=== PATIENT | male | born 1980 | race Caucasian/White ===

== ENCOUNTER 2017-09-22 15:08 | Emergency (ER) | payer BC ==
[2017-09-22 15:41] VITALS: TEMP 98.6; BMI 39.6
--- NOTE | 2017-09-22 15:48 | PDOC ---
Rapid Medical Evaluation Chief Complaint: Rectal Bleed Time Seen by Provider: 09/22/17 15:45 Medical Evaluation: Allergies Allergy/AdvReac Type Severity Reaction Status Date / Time No Known Allergies Allergy Verified 09/22/17 15:36 Vital Signs Temp Pulse Resp BP Pulse Ox 98.6 F 90 19 162/85 95 09/22/17 15:36 09/22/17 15:36 09/22/17 15:36 09/22/17 15:36 09/22/17 15:36 09/22/17 15:46 Pt with c/o: rectal bleed after taking a cleanse. Pt denies constipation prior to cleanse Pt on brief exam: No abd distention or tenderness, VSS pt ordered for : cbc, comp Pt to proceed to the ed Discharge Disposition - Diagnosis Rectal bleeding - Referrals - Patient Instructions - Post Discharge Activity
[2017-09-22 16:01] LABS: BASO % 1.2 % (0-2.0); EOS % 6.4 % (0-4.5); HEMOGLOBIN 14.3 GM/dL (11.7-16.9); LYMPH % 32.6 % (8-40); MCH 28.5 pg (25.7-33.7); MEAN CELL VOLUME 83.7 fl (80-96); MEAN PLT VOLUME 8.3 fl (7.5-11.1); MONO % 9.6 % (3.8-10.2); NEUT % 50.2 % (42.8-82.8); PLATELET COUNT 208 K/MM3 (134-434); RBC 5.02 M/mm3 (4.00-5.60); RDW 12.8 % (11.9-15.9); WHITE BLOOD COUNT 6.8 K/mm3 (4.0-10.0)
[2017-09-22 16:37] LABS: ALBUMIN 4.2 g/dl (3.4-5.0); ALK PHOS 81 U/L (45-117); ANION GAP 5 (8-16); BILIRUBIN,TOTAL 0.8 mg/dL (0.2-1.0); BLOOD UREA NITROGEN 16 mg/dL (7-18); CHLORIDE 102 mmol/L (98-107); CO2 31 mmol/L (21-32); CREATININE 1.4 mg/dL (0.7-1.3); GLUCOSE,RANDOM 81 mg/dL (74-106); POTASSIUM 4.2 mmol/L (3.5-5.1); SGOT/AST 39 U/L (15-37); SGPT/ALT 72 U/L (12-78); SODIUM 138 mmol/L (136-145); TOT PROT 7.5 g/dl (6.4-8.2)
--- NOTE | 2017-09-22 17:28 | PDOC ---
History of Present Illness - General History Source: Patient Exam Limitations: No Limitations - History of Present Illness Initial Comments: The patient is a 37 year old male with a significant past medical history of HTN and asthma who presents to the emergency department complaining of rectal bleeding beginning last night. The patient reports he first noted blood in stool at 10:45pm (09/21) last night after taking a laxative. The patient reports a mix of stool and blood after attempting to pass stool a number of times. The patient reports he was not producing stool, but only producing blood after looking in the toilet at 8am this morning, which prompted his visit to the ED. The patient describes the blood as bright red in color. He reports associated pain in his left upper quadrant ranked 3/10 in severity. He reports no previous history of blood in stool, and admits taking a laxative once a month. The patient denies loss of appetite. The patient denies chest pain, shortness of breath, headache, and dizziness. Denies fevers, chills, nausea, vomiting, diarrhea, and constipation. Denies dysuria, frequency, urgency, and hematuria. Allergies: NKDA Past surgical history: Deviated septum. Social history: Patient admits alcohol consumption on non-working days. No reported cigarette or drug use. PCP: Dr. Nikita Streeter <Raf Martinez - Last Filed: 09/22/17 19:09> <Sravanthi Kramer - Last Filed: 09/23/17 01:52> - General Chief Complaint: Rectal Bleed Stated Complaint: ABD PAIN, RECTAL BLEED (PCP SENT) Time Seen by Provider: 09/22/17 15:45 Past History <Raf Martinez - Last Filed: 09/22/17 19:09> - Past Medical History Asthma: Yes COPD: No HTN: Yes - Suicide/Smoking/Psychosocial Hx Smoking History: Never smoked <Sravanthi Kramer - Last Filed: 09/23/17 01:52> - Past Medical History Allergies/Adverse Reactions: Allergies Allergy/AdvReac Type Severity Reaction Status Date / Time No Known Allergies Allergy Verified 09/22/17 15:36 Review of Systems - Review of Systems Able to Perform ROS?: Yes Comments:: CONSTITUTIONAL: Absent: fever, chills, diaphoresis, generalized weakness, malaise, loss of appetite HEENT: Absent: rhinorrhea, nasal congestion, throat pain, throat swelling, difficulty swallowing, mouth swelling, ear pain, eye pain, visual Changes CARDIOVASCULAR: Absent: chest pain, syncope, palpitations, irregular heart rate, lightheadedness , peripheral edema RESPIRATORY: Absent: cough, shortness of breath, dyspnea with exertion, orthopnea, wheezing, stridor, hemoptysis GASTROINTESTINAL: (+)LUQ pain.(+)Hematochezia Absent: abdominal distension, nausea, vomiting, diarrhea, constipation, melena. GENITOURINARY: Absent: dysuria, frequency, urgency, hesitancy, hematuria, flank pain, genital pain MUSCULOSKELETAL: Absent: myalgia, arthralgia, joint swelling SKIN: Absent: rash, itching, pallor HEMATOLOGIC/IMMUNOLOGIC: Absent: easy bleeding, easy bruising, lymphadenopathy, frequent infections ENDOCRINE: Absent: unexplained weight gain, unexplained weight loss, heat intolerance, cold intolerance NEUROLOGIC: Absent: headache, focal weakness or paresthesias, dizziness, unsteady gait, seizure, mental status changes. PSYCHIATRIC: Absent: anxiety, depression, suicidal or homicidal ideation, hallucinations. <Raf Martinez - Last Filed: 09/22/17 19:09> *Physical Exam - Vital Signs Last Vital Signs Temp Pulse Resp BP Pulse Ox 98.6 F 90 19 162/85 95 09/22/17 15:36 09/22/17 15:36 09/22/17 15:36 09/22/17 15:36 09/22/17 15:36 - Physical Exam Comments: GENERAL: Well developed, well nourished. Awake and alert. No acute distress. HEENT: Normocephalic, atraumatic. PERRLA, EOMI. No conjunctival pallor. Sclera are non- icteric. Moist mucous membranes. Oropharynx is clear. NECK: Supple. Full ROM. No JVD. Carotid pulses 2+ and symmetric, without bruits. No thyromegaly. No lymphadenopathy. CARDIOVASCULAR: Regular rate and rhythm. No murmurs, rubs, or gallops. Distal pulses are 2+ and symmetric. PULMONARY: No evidence of respiratory distress. Lungs clear to auscultation bilaterally. No wheezing, rales or rhonchi. ABDOMINAL: Soft. Non-tender. Non-distended. No rebound or guarding. No organomegaly. Normoactive bowel sounds. MUSCULOSKELETAL Normal range of motion at all joints. No bony deformities or tenderness. No CVA tenderness. RECTAL: (+)Carlock on glove. Normal tone. No melena. EXTREMITIES: No cyanosis. No clubbing. No edema. No calf tenderness. SKIN: Warm and dry. Normal capillary refill. No rashes. No jaundice. NEUROLOGICAL: Alert, awake, appropriate. Cranial nerves 2-12 intact. No deficits to light touch and temperature in face, upper extremities and lower extremities. No motor deficits in the in face, upper extremities and lower extremities. Normoreflexic in the upper and lower extremities. Normal speech. Toes are down- going bilaterally. PSYCHIATRIC: Cooperative. Good eye contact. Appropriate mood and affect. <Raf Martinez - Last Filed: 09/22/17 19:09> - Vital Signs Last Vital Signs Temp Pulse Resp BP Pulse Ox 98.6 F 90 19 162/85 95 09/22/17 15:36 09/22/17 15:36 09/22/17 15:36 09/22/17 15:36 09/22/17 15:36 <Sravanthi Kramer - Last Filed: 09/23/17 01:52> ED Treatment Course - LABORATORY CBC & Chemistry Diagram: 09/22/17 15:54 09/22/17 15:54 - ADDITIONAL ORDERS Additional order review: Laboratory Results 09/22/17 15:54 Sodium 138 Potassium 4.2 Chloride 102 Carbon Dioxide 31 Anion Gap 5 L BUN 16 Creatinine 1.4 H Creat Clearance w eGFR 57.34 Random Glucose 81 Calcium 9.0 Total Bilirubin 0.8 AST 39 H ALT 72 Alkaline Phosphatase 81 Total Protein 7.5 Albumin 4.2 09/22/17 15:54 RBC 5.02 MCV 83.7 MCHC 34.0 RDW 12.8 MPV 8.3 Neutrophils % 50.2 Lymphocytes % 32.6 Monocytes % 9.6 Eosinophils % 6.4 H Basophils % 1.2 - Medications Given in the ED: ED Medications Discontinued Medications Generic Name Dose Route Start Last Admin Trade Name Freq PRN Reason Stop Dose Admin Sodium Chloride 1,000 mls @ 1,000 mls/hr 09/22/17 17:35 09/22/17 17:51 Normal Saline - IV 09/22/17 18:34 1,000 mls/hr ASDIR STA Administration <Raf Martinez - Last Filed: 09/22/17 19:09> - LABORATORY CBC & Chemistry Diagram: 09/22/17 15:54 09/22/17 15:54 - ADDITIONAL ORDERS Additional order review: Laboratory Results 09/22/17 15:54 Sodium 138 Potassium 4.2 Chloride 102 Carbon Dioxide 31 Anion Gap 5 L BUN 16 Creatinine 1.4 H Creat Clearance w eGFR 57.34 Random Glucose 81 Calcium 9.0 Total Bilirubin 0.8 AST 39 H ALT 72 Alkaline Phosphatase 81 Total Protein 7.5 Albumin 4.2 09/22/17 15:54 RBC 5.02 MCV 83.7 MCHC 34.0 RDW 12.8 MPV 8.3 Neutrophils % 50.2 Lymphocytes % 32.6 Monocytes % 9.6 Eosinophils % 6.4 H Basophils % 1.2 <Sravanthi Kramer - Last Filed: 09/23/17 01:52> Medical Decision Making - Medical Decision Making Contacted Dr. Streeter at 17:33. <Raf Martinez - Last Filed: 09/22/17 19:09> - Medical Decision Making 09/23/17 01:51 Please [id number] male who experienced some rectal bleeding was referred in by Dr. Sunshine for further workup. On exam, patient had no external hemorrhoids. THe CBC did not show any anemia and platelets were within normal limits. CAT scan of abdomen and pelvis was negative for any signs of diverticulitis or colitis. Patient was referred to GI for further evaluation <Sravanthi Kramer - Last Filed: 09/23/17 01:52> *DC/Admit/Observation/Transfer - Attestations Scribe Attestion: Documentation prepared by Raf Martinez, acting as biomedical field service engineer for Sravanthi Kramer MD. <Raf Martinez - Last Filed: 09/22/17 19:09> <Sravanthi Kramer - Last Filed: 09/23/17 01:52> Diagnosis at time of Disposition: Rectal bleeding - Discharge Dispostion Disposition: HOME Condition at time of disposition: Stable - Referrals Referrals: Nikita Streeter MD [Primary Care Provider] - Lynn Poole MD [Staff Physician] - - Patient Instructions Printed Discharge Instructions: DI for Rectal Bleeding Additional Instructions: please follow up with your doctor - Post Discharge Activity
[2017-09-22] MEDS ORDERED: SODIUM CHLORIDE 1,000 ML IV STA (17:35)
[2017-09-22 19:20] VITALS: BP 143/89; PULSE 84
== END 2017-09-22 21:34 | disposition home or self-care (01) ==
LOC: JER 15:08
PROC: 3E0337Z Introduction of Electrolytic and Water Balance Substance into Peripheral Vein, Percutaneous Approach (ICD-10-PCS; principal; 2017-09-22)
DX: K62.5 Hemorrhage of anus and rectum (principal); I10 Essential (primary) hypertension; J45.909 Unspecified asthma, uncomplicated
CPT/HCPCS: 36415; 74176-TC; 80053; 85025; 99282-25; J7030